=== PATIENT | male | born 1945 | race Caucasian/White ===

== ENCOUNTER 2018-03-12 00:08 | Inpatient (IN) | payer MEDICARE ==
[~2018-03-12] VITALS: Ht 182.9 cm; Wt 133.8 kg
[~2018-03-12 00:08] MED LIST: ASPI-650 PO; FINA5TAB4 PO; GABA-826 PO; GLUC1CAP48 PO; LISI-167 PO; MELO15TA24 PO; MULT-298 PO; MULT-516 PO; OMEP-110 PO; OXYC5TAB3 PO; TAMS0.4C2 PO; TRAM50TA2 PO
[2018-03-12] MEDS ORDERED: FAMOTIDINE 20 MG/2 ML IVP ONE (00:30)
[2018-03-12] MEDS ORDERED: ONDANSETRON ODT 4 MG PO ONE (00:30)
[2018-03-12] MEDS ORDERED: SODIUM CHLORIDE FLUSH 10ML SYR IVF ONE (00:30)
[2018-03-12] MEDS ORDERED: SODIUM CHLORIDE 0.9% 1,000ML IVBOLUS ONE (00:30)
[2018-03-12] MEDS ORDERED: MORPHINE SULFATE 4 MG/ML, 1ML ONE ×2 (00:31→02:23)
[2018-03-12] MEDS ORDERED: ONDANSETRON ODT 4 MG ONE (00:31)
[2018-03-12] MEDS ORDERED: FAMOTIDINE 20 MG/2 ML ONE (00:31)
[2018-03-12] MEDS: MORPHINE SULFATE 4 MG/ML, 1ML IVPush PRN ×2 (00:38→03:01)
[2018-03-12 00:47] LABS: BASOPHILS # (AUTO) 0.01 x10^3/uL (0-0.1); BASOPHILS % (AUTO) 0 % (0-1); EOSINOPHILS % (AUTO) 1 % (1-7); LYMPHOCYTES # (AUTO) 1.44 x10^3/uL (1-3.4); LYMPHOCYTES % (AUTO) 15 % (22-44); MD NO; MEAN CORPUSCULAR HEMOGLOBIN 34.1 pg (27.5-34.5); MEAN CORPUSCULAR HGB CONC 34.3 g/dL (33.2-36.2); MEAN CORPUSCULAR VOLUME 99.5 fL (81-97); MEAN PLATELET VOLUME 7.8 fL (7.4-10.4); MONOCYTES # (AUTO) 0.64 x10^3/uL (0.2-0.8); MONOCYTES % (AUTO) 7 % (2-9); NEUTROPHILS # (AUTO) 7.71 x10^3/uL (1.8-6.8); NEUTROPHILS % (AUTO) 78 % (42-75); PLATELET COUNT 261 x10^3/uL (130-400); RED BLOOD COUNT 4.58 x10^6/uL (4.38-5.82)
[2018-03-12 00:57] LABS: ALANINE AMINOTRANSFERASE 38 U/L (12-78); ALBUMIN 3.7 g/dL (3.4-5.0); ANION GAP 3 mmol/L (5-15); CALCIUM 9.3 mg/dL (8.5-10.1); CHLORIDE 109 mmol/L (98-107); CREATININE 1.14 mg/dL (0.7-1.3)
[2018-03-12 00:59] LABS: ALKALINE PHOSPHATASE 68 U/L (45-117); BILIRUBIN,TOTAL 0.5 mg/dL (0.2-1.0); TOTAL PROTEIN 7.2 g/dL (6.4-8.2)
[2018-03-12] MEDS ORDERED: SODIUM CHLORIDE 0.9% 1,000 ML IV ONE (02:12)
[2018-03-12] MEDS ORDERED: ONDANSETRON 2MG/ML, 2ML IVPush PRN (02:30)
[2018-03-12] MEDS ORDERED: ACETAMINOPHEN 325 MG TABLET PO PRN (02:30)
[2018-03-12] MEDS ORDERED: PROMETHAZINE 25 MG/ML, 1ML IM PRN (02:30)
[2018-03-12] MEDS ORDERED: SODIUM CHLORIDE FLUSH 10ML SYR IVF PRN (02:30)
[2018-03-12] MEDS ORDERED: hydrALAzine 20 MG/ML, 1ML IVPush PRN (02:30)
[2018-03-12] MEDS ORDERED: OXYcodone IR 5MG TABLET PO PRN (02:30)
[2018-03-12] MEDS ORDERED: LABETALOL 5MG/ML, 20ML IVPush PRN (02:30)
[2018-03-12] MEDS ORDERED: MORPHINE SULFATE 4 MG/ML, 1ML IVPush PRN (02:30)
[2018-03-12] MEDS ORDERED: OMEP40CA6 PO (02:31)
[2018-03-12 03:16] VITALS: BP 111/72
[2018-03-12 03:21] LABS: FREE T4 (FREE THYROXINE) 1.14 ng/dL (0.76-1.46); THYROID STIMULATING HORMONE 1.89 mIU/L (0.358-3.740)
[2018-03-12] MEDS: morphine SULFATE 10 MG/ML, 1ML IVPush PRN ×5 (03:32→23:32)
[2018-03-12] MEDS: D5%-0.9% NACL+KCL 20MEQ 1,000 ML IV SCH ×3 (04:15→18:44)
[2018-03-12 06:53] VITALS: BP 99/65
[2018-03-12] MEDS: ONDANSETRON ODT 4 MG PO PRN ×2 (09:00→16:11)
[2018-03-12] MEDS ORDERED: LISINOPRIL 10 MG TABLET PO SCH (09:00)
[2018-03-12] MEDS: FINASTERIDE 5 MG TABLET PO SCH (09:01)
[2018-03-12] MEDS: MULTIVITAMINS/MINERALS TABLET PO SCH (09:01)
[2018-03-12] MEDS: OMEPRAZOLE 20 MG CAPSULE.DR PO SCH (09:01)
[2018-03-12] MEDS: TAMSULOSIN 0.4 MG CAP.ER.24H PO SCH (09:01)
[2018-03-12 13:17] VITALS: BP 110/71
[2018-03-12 19:17] LABS: MICROSCOPIC AUTO
[2018-03-12 19:21] LABS: CULTURE INDICATED? YES
[2018-03-12 20:00] VITALS: BP 102/64
[2018-03-13] MEDS ORDERED: OMNIPAQUE 350 MG/ML, 100ML BOTTLE ONE (01:02)
[2018-03-13 01:24] VITALS: BP 103/62
[2018-03-13] MEDS: morphine SULFATE 10 MG/ML, 1ML IVPush PRN ×2 (02:42→13:28)
[2018-03-13] MEDS: D5%-0.9% NACL+KCL 20MEQ 1,000 ML IV SCH (02:43)
[2018-03-13 05:20] LABS: ALBUMIN 3.2 g/dL (3.4-5.0); ANION GAP 5 mmol/L (5-15); CALCIUM 8.5 mg/dL (8.5-10.1); CHLORIDE 111 mmol/L (98-107)
[2018-03-13 05:25] LABS: BASOPHILS # (AUTO) 0.01 x10^3/uL (0-0.1); BASOPHILS % (AUTO) 0 % (0-1); EOSINOPHILS # (AUTO) 0.06 x10^3/uL (0-0.4); EOSINOPHILS % (AUTO) 1 % (1-7); LYMPHOCYTES # (AUTO) 0.74 x10^3/uL (1-3.4); LYMPHOCYTES % (AUTO) 10 % (22-44); MD NO; MEAN CORPUSCULAR HGB CONC 33.8 g/dL (33.2-36.2); MEAN CORPUSCULAR VOLUME 100.5 fL (81-97); MEAN PLATELET VOLUME 7.8 fL (7.4-10.4); MONOCYTES # (AUTO) 0.78 x10^3/uL (0.2-0.8); MONOCYTES % (AUTO) 10 % (2-9); NEUTROPHILS # (AUTO) 6.04 x10^3/uL (1.8-6.8); NEUTROPHILS % (AUTO) 79 % (42-75); PLATELET COUNT 221 x10^3/uL (130-400); RED BLOOD COUNT 4.23 x10^6/uL (4.38-5.82); RED CELL DISTRIBUTION WIDTH 14.2 % (9.4-14.8)
[2018-03-13 05:34] LABS: ALANINE AMINOTRANSFERASE 32 U/L (12-78); ALKALINE PHOSPHATASE 55 U/L (45-117); BILIRUBIN,TOTAL 0.7 mg/dL (0.2-1.0); TOTAL PROTEIN 6.5 g/dL (6.4-8.2)
[2018-03-13 05:54] LABS: FOLATE LEVEL > 20.0 ng/mL (3.1-17.5)
[2018-03-13 07:31] VITALS: BP 102/64
[2018-03-13] MEDS: D5%-0.9% NACL 1,000 ML IV SCH ×2 (08:50→17:41)
[2018-03-13] MEDS: KETOROLAC 30 MG/1 ML IVPush PRN ×2 (08:50→15:02)
[2018-03-13] MEDS: FINASTERIDE 5 MG TABLET PO SCH (08:51)
[2018-03-13] MEDS: MULTIVITAMINS/MINERALS TABLET PO SCH (08:51)
[2018-03-13] MEDS: OMEPRAZOLE 20 MG CAPSULE.DR PO SCH (08:51)
[2018-03-13] MEDS: TAMSULOSIN 0.4 MG CAP.ER.24H PO SCH (08:51)
[2018-03-13] MEDS: ONDANSETRON ODT 4 MG PO PRN (13:28)
[2018-03-13 13:36] VITALS: BP 117/75
[2018-03-13 19:47] VITALS: BP 107/66
[2018-03-14] MEDS: D5%-0.9% NACL 1,000 ML IV SCH ×3 (02:00→16:30)
[2018-03-14 03:03] VITALS: BP 101/57
[2018-03-14 05:18] LABS: ALBUMIN 2.9 g/dL (3.4-5.0); ANION GAP 6 mmol/L (5-15); CHLORIDE 111 mmol/L (98-107)
[2018-03-14 05:20] LABS: CREATININE 1.11 mg/dL (0.7-1.3)
[2018-03-14 07:08] VITALS: BP 137/77
[2018-03-14] MEDS: OMEPRAZOLE 20 MG CAPSULE.DR PO SCH (08:27)
[2018-03-14] MEDS: MULTIVITAMINS/MINERALS TABLET PO SCH (08:27)
[2018-03-14] MEDS: TAMSULOSIN 0.4 MG CAP.ER.24H PO SCH (08:28)
[2018-03-14] MEDS: FINASTERIDE 5 MG TABLET PO SCH (08:28)
[2018-03-14 13:06] VITALS: BP 100/62
[2018-03-14 18:43] VITALS: BP 108/66
[2018-03-15] MEDS: D5%-0.9% NACL 1,000 ML IV SCH ×2 (00:30→08:30)
[2018-03-15 01:08] VITALS: BP 107/65
[2018-03-15 06:20] LABS: ALBUMIN 2.9 g/dL (3.4-5.0); ANION GAP 4 mmol/L (5-15); CALCIUM 8.7 mg/dL (8.5-10.1); CHLORIDE 108 mmol/L (98-107); CREATININE 0.97 mg/dL (0.7-1.3)
[2018-03-15 07:56] VITALS: BP 123/74
[2018-03-15] MEDS: TAMSULOSIN 0.4 MG CAP.ER.24H PO SCH (08:55)
[2018-03-15] MEDS: MULTIVITAMINS/MINERALS TABLET PO SCH (08:55)
[2018-03-15] MEDS: FINASTERIDE 5 MG TABLET PO SCH (08:55)
[2018-03-15] MEDS: OMEPRAZOLE 20 MG CAPSULE.DR PO SCH (08:55)
== END 2018-03-15 13:20 | disposition home or self-care (01) | DRG 389 ==
LOC: ED 00:54 → EDIP 02:12 → 4NOR 03:04 → DCLOUNGE 03-15 13:04
PROVIDERS: ADMIT Internal Medicine; ATTEND Internal Medicine
PROC: 0D9670Z Drainage of Stomach with Drainage Device, Via Natural or Artificial Opening (ICD-10-PCS; principal; 2018-03-12)
DX: K56.51 Intestinal adhesions [bands], with partial obstruction (principal); Z68.41 Body mass index [BMI] 40.0-44.9, adult; N28.1 Cyst of kidney, acquired; D75.89 Other specified diseases of blood and blood-forming organs; I10 Essential (primary) hypertension; K21.9 Gastro-esophageal reflux disease without esophagitis; E66.8 Other obesity; K80.20 Calculus of gallbladder without cholecystitis without obstruction; M19.90 Unspecified osteoarthritis, unspecified site; N20.0 Calculus of kidney; K43.9 Ventral hernia without obstruction or gangrene; N40.0 Benign prostatic hyperplasia without lower urinary tract symptoms; Z90.49 Acquired absence of other specified parts of digestive tract; Z93.3 Colostomy status; Z87.442 Personal history of urinary calculi; Z80.3 Family history of malignant neoplasm of breast
CPT/HCPCS: 36415; 74177; 80048; 80053; 81001; 82040; 82607; 82746; 83036; 83605; 83690; 83735; 84132; 84439; 84443; 85025; 87086; 93306; 96361; 96374; 96375; 99285; G0378; J1885; J7042; Q0162; Q9967; J2270; J3480; J7030; S0028

== ENCOUNTER 2019-07-22 18:25 | Emergency (ER) | payer MEDICARE ==
[~2019-07-22 18:25] MED LIST changes: +OMEP40CA42 PO
[2019-07-22] MEDS ORDERED: SODIUM BICARB 8.4%, 50ML SYRINGE ONE (18:43)
[2019-07-22] MEDS ORDERED: EPINEPHRINE SYRINGE 0.1 MG/ML, 10ML ONE (18:43)
--- NOTE | 2019-07-22 18:53 | NUR ---
BIB [facility] A CODE BLUE. CPR IN PROGRESS. ASYSTOLE ON MONITOR, ETCO2 13, NO PALPABLE PUSLE. SEE CODE SHEET FOR INTERVENTIONS. PRONOUNCED BY DR FINLEY 183
[2019-07-22] MEDS ORDERED: CODE BLUE RESPONSE XX ONE (19:00)
--- NOTE | 2019-07-22 19:04 | NUR ---
CALLED [facility] AT THIS TIME. REF # [id number]
--- NOTE | 2019-07-22 19:11 | NUR ---
[facility] CONTACT IS Michelle MERINO
--- NOTE | 2019-07-22 19:18 | NUR ---
LIVING ADVISOR [facility] CALLED AT THIS TIME AND NOTIFIED. WILL CALL BACK
--- NOTE | 2019-07-22 19:19 | NUR ---
[employer] FROM [facility] [employer] CALLED AND ACCEPTED PT PENDING CORONERS CASE DETERMINATION.
--- NOTE | 2019-07-22 19:22 | NUR ---
PER [facility] HER PT TO [facility]. DECLINED NEED FOR PHYSCIAL EXAM TONIGHT. TO [facility] PT TOMORROW.
--- NOTE | 2019-07-22 19:27 | NUR ---
[employer] MACHINE OPERATOR
== END 2019-07-22 20:27 | disposition expired ==
LOC: ED 18:46
DX: I46.9 Cardiac arrest, cause unspecified (principal); I10 Essential (primary) hypertension; K21.9 Gastro-esophageal reflux disease without esophagitis
CPT/HCPCS: 31500; 92950; 99285